=== PATIENT | male | born 1950 | race Caucasian/White ===

== ENCOUNTER 2018-06-18 08:35 | Outpatient (CLI) | payer OTHER ==
[2018-06-18] MEDS ORDERED: LIDOCAINE 1%, 20 ML MDV 20 ML ONE (11:36)
== END 2018-06-18 18:30 | disposition home or self-care (01) ==
LOC: SCT 08:35
DX: N05.9 Unspecified nephritic syndrome with unspecified morphologic changes (principal); N28.89 Other specified disorders of kidney and ureter
CPT/HCPCS: 50200; 77012; 88305; J2001; 88307